=== PATIENT | male | born 1995 | race African-American/Black ===

== ENCOUNTER 2016-10-07 08:48 | Emergency (ER) | payer OTHER ==
[~2016-10-07] VITALS: Ht 167.6 cm; Wt 90.0 kg
[2016-10-07 08:50] VITALS: BP 136/63; PULSE 80; RESP 16; TEMP 98.2; O2SAT 98
--- NOTE | 2016-10-07 09:29 | PD ---
HPI Chief Complaint: Complaint Time Seen by Provider: 09:17 Travel History International Travel<30 days: No Contact w/Intl Traveler<30days: No Traveled to known affect area: No History of Present Illness HPI 21-year-old male presents to the emergency department with complaint of bumps to the head of his penis that it been there for the last 2-3 months. Denies penile discharge, lesions, pain. Denies testicular pain or edema. Denies abdominal pain, nausea or vomiting. Denies fever, chills. Has not taken any medications or tried any treatments to relieve his symptoms. Reports being recently tested for STDs at his school and was told hid test was negative. Denies other medical complaints. No other modifying factors or associated signs and symptoms. Review of Systems Except as stated in HPI: all other systems reviewed are Neg Physical Exam Narrative GENERAL: Well-nourished, well-developed male patient, in no acute distress SKIN: Warm and dry. HEAD: Atraumatic. Normocephalic. EYES: Pupils equal and round. ENT: Mucosa pink and moist. NECK: Trachea midline. No lymphadenopathy. CARDIOVASCULAR: Regular rate and rhythm. RESPIRATORY: No accessory muscle use. GASTROINTESTINAL: Flat. GENITOURINARY: Circumcised. Testes descended bilaterally without evidence of rotation. Cluster of small flesh-colored bumps noted to the glans penis. No lesions or erythema. No urethral discharge. MUSCULOSKELETAL: No obvious deformities. No clubbing. No cyanosis. No edema. NEUROLOGICAL: Awake and alert. Oriented 3. No obvious cranial nerve deficits. Motor grossly within normal limits. Normal speech. Moves all extremities. 5/5 strength to all extremities. PSYCHIATRIC: Appropriate mood and affect; insight and judgment normal. Data Data Last Documented VS Vital Signs Date Time Temp Pulse Resp B/P Pulse Ox O2 Delivery O2 Flow Rate FiO2 10/07/16 08:50 98.2 80 16 136/63 98 MDM Medical Screen Exam Complete: Yes Emergency Medical Condition: No Differential Diagnosis Genital warts, general herpes, chlamydia, gonorrhea, medical clearance Narrative Course 21-year-old male with a cluster of flesh-colored bumps to the glans penis that may be consistent with genital warts. Denies penile discharge. Patient afebrile nontoxic appearing. Denies fever, chills, nausea, vomiting. Vital signs are stable and the patient is stable for outpatient follow-up and treatment. The patient has no urgent or emergent medical complaints. There is no emergent or urgent medical need at this time. I instructed the patient to follow up with their primary care provider. A medical screening exam was performed: At the time of evaluation the presenting medical condition was determined not to be of an emergent nature. The patient was given the option of receiving additional care, but declined. Patient was given options for additional community resources from which to obtain care. The Patient Has Been advised to seek medical attention for their presenting complaint. The patient has been advised to return to the ER at any time if an emergent condition develops. Primary Impression: Encounter for medical screening examination Condition: Stable Leticia Min Oct 07, 2016 09:29
== END 2016-10-07 09:15 | disposition left against medical advice (07) ==
LOC: NEPB 08:48
DX: N48.9 Disorder of penis, unspecified (principal)
CPT/HCPCS: 99281

== ENCOUNTER 2016-10-18 20:17 | Emergency (ER) | payer MEDICAID, OTHER ==
[~2016-10-18] VITALS: Ht 185.4 cm; Wt 87.0 kg
[2016-10-18 20:19] VITALS: BP 134/65; PULSE 95; RESP 14; TEMP 98.3; O2SAT 100
--- NOTE | 2016-10-18 22:49 | PD ---
HPI Chief Complaint: Skin Problem Time Seen by Provider: 22:46 Travel History International Travel<30 days: No Contact w/Intl Traveler<30days: No Traveled to known affect area: No History of Present Illness HPI Patient comes in for evaluation of his face breaking out over the past week. Patient states he bought some facial wash today to try to cleanse his face however he decided to emergency department further treatment and evaluation. Patient denies any pain with this or itching. Patient denies any new allergen exposures including but not limited to: soaps, lotions, detergents, foods, medicines, or pets. Patient states he thinks he may be breaking out from the water at his school but is uncertain. History Social History Alcohol Use: No Tobacco Use: No Allergies-Medications (Allergen,Severity, Reaction): Coded Allergies: No Known Allergies (Unverified , 10/18/16) Review of Systems Except as stated in HPI: all other systems reviewed are Neg Physical Exam Narrative GENERAL: Well-developed, well nourished, in no acute distress, and non-ill appearing. SKIN: Warm and dry. Mild acne noted on the face. HEAD: Atraumatic. Normocephalic. EYES: Pupils equal and round. EOMI. No scleral icterus. No injection or drainage. ENT: No nasal bleeding or discharge. Mucous membranes pink and moist. NECK: Trachea midline. Supple. No nuclear rigidity. RESPIRATORY: No accessory muscle use. No respiratory distress. MUSCULOSKELETAL: No obvious deformities. No clubbing. No cyanosis. No edema. Full range of motion. NEUROLOGICAL: Awake and alert. No obvious cranial nerve deficits. Motor grossly within normal limits. Normal speech. PSYCHIATRIC: Appropriate mood and affect; insight and judgment normal. Data Data Last Documented VS Vital Signs Date Time Temp Pulse Resp B/P Pulse Ox O2 Delivery O2 Flow Rate FiO2 10/18/16 20:19 98.3 95 14 134/65 100 Room Air MDM Medical Screen Exam Complete: Yes Emergency Medical Condition: No Narrative Course History and physical exam findings are not consistent with an emergent medical condition. He was given the option of receiving additional care, but has declined. Therefore the appropriate counseling recommendations were discussed with the patient and he was instructed to follow-up with his primary care physician as soon as possible for reevaluation. Patient was also informed of community resources from which he can obtain additional care. He is agreeable and verbalizes an understanding of the proposed plan. The patient states he will immediately return to the emergency department if his current complaints do not improve, new symptoms arise, or emergent condition develops. Patient ambulated out of the emergency department without difficulty. Primary Impression: Encounter for medical screening examination Disposition: [facility]GO-ED USE ONLY Condition: Stable Julius Pink Oct 18, 2016 22:49
== END 2016-10-18 22:54 | disposition left against medical advice (07) ==
LOC: NEPB 20:17
DX: R68.89 Other general symptoms and signs (principal)
CPT/HCPCS: 99281

== ENCOUNTER 2016-11-29 14:54 | Emergency (ER) | payer MEDICAID ==
[~2016-11-29] VITALS: Ht 185.4 cm; Wt 90.0 kg
[2016-11-29 14:55] VITALS: BP 132/62; PULSE 62; RESP 14; TEMP 98; O2SAT 100
--- NOTE | 2016-11-29 15:07 | PD ---
HPI Chief Complaint: Injury Time Seen by Provider: 15:07 Travel History International Travel<30 days: No Contact w/Intl Traveler<30days: No Traveled to known affect area: No History of Present Illness HPI 21-year-old male presents to the emergency Department with complaint of left hand pain and swelling since last night after hitting his hand while playing basketball. Denies paresthesias, loss of sensation, decreased range of motion to the affected extremity. Says he can feel some crackling in the dorsal aspect of his hand. Reports having full range of motion of all fingers. Reports pain is worse when he moves his left third finger. Denies fever, chills , nausea, vomiting. Has taken ibuprofen and Tylenol and ice the area with no relief of symptoms. No known allergies. Has no other medical complaints. No other modifying factors or associated signs and symptoms. [facility] Social History Alcohol Use: No Tobacco Use: No Allergies-Medications (Allergen,Severity, Reaction): Coded Allergies: No Known Allergies (Unverified , 11/29/16) Reported Meds & Prescriptions Reported Meds & Active Scripts Active Ibuprofen 800 Mg Tab 800 Mg PO Q6HR PRN Review of Systems Except as stated in HPI: all other systems reviewed are Neg Physical Exam Narrative GENERAL: Well-nourished, well-developed male patient, in no acute distress SKIN: Warm and dry. HEAD: Atraumatic. Normocephalic. EYES: Pupils equal and round. No scleral icterus. No injection or drainage. ENT: Mucosa pink and moist. Airway patent. NECK: Trachea midline. CARDIOVASCULAR: Regular rate. RESPIRATORY: No accessory muscle use. GASTROINTESTINAL: Flat. MUSCULOSKELETAL: Dorsal aspect of left hand is edematous and with tenderness on palpation over the third and fourth metacarpal area; without erythema, ecchymosis; no obvious deformity. Left upper extremity is supple and non-tense with 2+ radial pulse and sensory intact. All fingers with full range of motion. No obvious deformities. No clubbing. No cyanosis. NEUROLOGICAL: Awake and alert. Oriented 3. No obvious cranial nerve deficits. Motor grossly within normal limits. Normal speech. PSYCHIATRIC: Appropriate mood and affect; insight and judgment normal. Data Data Last Documented VS Vital Signs Date Time Temp Pulse Resp B/P Pulse Ox O2 Delivery O2 Flow Rate FiO2 11/29/16 14:55 98.0 62 14 132/62 100 Orders Hand, Complete ([id number]) (11/29/16 15:07) Splint Or Brace Apply/Monitor (11/29/16 15:56) Sling Cradle Arm (11/29/16 ) MDM Medical Decision Making Medical Screen Exam Complete: Yes Emergency Medical Condition: Yes Medical Record Reviewed: Yes Differential Diagnosis Hand fracture, hand contusion, hand sprain Narrative Course 21-year-old male with left hand injury after playing basketball last night. I offered the patient a nonnarcotic for pain and he declined at this time. Left hand x-ray ordered. 1555: Left hand x-ray concludes: Hand X-Ray 11/29/16 1507 Signed Impressions: Service Date/Time: Tuesday, November 29, 2016 15:18 - CONCLUSION: Nondisplaced spiral fracture involving the third metacarpal. Aashish Cha MD Call placed to hand. Splint and arm sling ordered. 1645: I spoke with Dr. Duque and she agreed the patient can follow-up in one week. Volar splint was applied. Arm sling was provided for support. Ibuprofen prescribed for home. Instructed patient to follow up with Dr. Duque, or hand surgeon of choice, in her office within one week. Patient verbalizes understanding and agreement with treatment plan. Patient is medically cleared and stable for discharge. Discussed reasons to return to the emergency department. Instructed patient to follow up with primary care provider. Patient agrees with treatment plan. The patients vital signs are stable and the patient is stable for outpatient follow-up and treatment. Patient discharged home, stable and in no acute distress. Diagnosis Primary Impression: Left hand fracture Qualified Code: S62.92XA - Left hand fracture, closed, initial encounter Referrals: Soraida Duque MD Hand Surgeon Primary Care Physician Patient Instructions: General Instructions, Hand Fracture (ED) Departure Forms: Tests/Procedures, Work Release Enter return to work date: December 13, 2016 Additional Instructions: Tylenol or ibuprofen as directed and as needed to reduce pain Rest, ice, compress, and elevate extremity to decrease pain and inflammation Splint for support; do not remove the splint until you follow up with the hand doctor Avoid aggravating activity; increase activity as tolerated Follow-up with primary care provider Follow-up with hand within 1 week Return to the emergency department immediately with worsening symptoms Med/Other Pt SpecificInfo: Prescription(s) given Scripts Ibuprofen 800 Mg [id number] Mg PO Q6HR PRN (PAIN) #30 TAB Ref 0 Prov:Leticia Min 11/29/16 Disposition: 01 DISCHARGE HOME Condition: Stable Leticia Min Nov 29, 2016 15:07
--- NOTE | 2016-11-29 15:43 | RADRPT ---
EXAM DATE/TIME: 11/29/2016 15:18 [facility] COMPARISON: No previous studies available for comparison. INDICATIONS : Patient hit left hand playing basketball yesterday. Pain in area of metacarpals. MEDICAL HISTORY : None. SURGICAL HISTORY : None. ENCOUNTER: Initial ACUITY: 1 day PAIN SCORE: 5/10 LOCATION: Left Hand FINDINGS: AP, lateral and oblique views of the left hand were obtained and demonstrate a nondisplaced spiral fr acture involving the third metacarpal. There is mild overlying soft tissue swelling. There are no oth er bony abnormalities. CONCLUSION: Nondisplaced spiral fracture involving the third metacarpal. Aashish Cha MD on November 29, 2016 at 15:40 Board Certified Radiologist. This report was verified electronically.
[2016-11-29] MEDS ORDERED: IBUP800T23 PO (15:53)
[2016-11-29 17:00] VITALS: BP 136/75
== END 2016-11-29 17:09 | disposition home or self-care (01) ==
LOC: NEPK 14:54
DX: S62.393A Other fracture of third metacarpal bone, left hand, initial encounter for closed fracture (principal); W21.05XA Struck by basketball, initial encounter; Y93.67 Activity, basketball; Y92.838 Other recreation area as the place of occurrence of the external cause
CPT/HCPCS: 29125; 73130